=== PATIENT | female | born 1970 | race Caucasian/White ===

== ENCOUNTER 2020-07-03 07:03 | Day surgery (SDC) | payer BC ==
[~2020-07-03] VITALS: Ht 162.6 cm; Wt 79.5 kg
[2020-07-03 07:30] LABS: PROTIME 12.2 SECONDS (11.6-15.0)
[2020-07-03 07:37] LABS: ANION GAP 13.8 mmol/L (8-16); BILIRUBIN - TOTAL 0.81 mg/dL (0.2-1.3); CALCIUM 8.8 mg/dL (8.5-10.1); CARBON DIOXIDE 26.2 mmol/L (21.0-32.0); CREATININE - SERUM 0.9 mg/dL (0.6-1.3); PROTEIN - SERUM 7.5 g/dL (6.4-8.2)
[2020-07-03 07:38] LABS: BASOPHILS 0.2 % (0-2); EOSINOPHILS 2.5 % (0-7); HEMATOCRIT 43.5 % (36.0-48.0); HEMOGLOBIN 14.7 g/dL (12-16); IMMATURE GRANULOCYTES 0.2 % (0-5); LYMPHOCYTE ABS# 1.55 10x3/uL (1.18-3.74); MCH 29.9 pg (26.0-34.0); MCHC 33.8 g/dL (31.0-37.0); MCV 88.6 fL (80.0-100.0); MEAN PLATELET VOLUME 8.7 fL (7.4-10.4); MONOCYTES 7.2 % (2-11); NEUTROPHILS 59.9 % (40-80); PLATELET COUNT 187 10x3/uL (130-400); RBC 4.91 10x6/uL (4.00-5.40); RDW 13.1 % (11.5-14.5); WBC 5.2 10x3/uL (4.8-10.8)
[2020-07-03] MEDS ORDERED: ELIQUIS2.5 MG PO (07:42)
[2020-07-03] MEDS ORDERED: VYVANSE30 MG PO (07:43)
[2020-07-03] MEDS ORDERED: NP THYROID30 MG PO (07:43)
[2020-07-03] MEDS ORDERED: LEXAPRO5 MG PO (07:44)
[2020-07-03 07:56] VITALS: BP 142/84; Ht 162.6 cm; Wt 79.5 kg
[2020-07-03 08:04] LABS: HCG URINE NEGATIVE (NEGATIVE)
--- NOTE | 2020-07-03 09:54 | NUR ---
DC INSTRUCTIONS GIVEN TO PT. STATES UNDERSTANDING. DC'D IV CATH FULLY INTACT. WILL DC SHORTLY.
--- NOTE | 2020-07-03 14:46 | OP ---
PATIENT NAME: YEN MAYBERRY MEDICAL RECORD: [id number] :72 LOCATION:[facility] ADMISSION DATE: SURGEON: HOMER QUIROZ MD DATE OF OPERATION: 07/03/2020 PROCEDURE: Colonoscopy. PREOPERATIVE DIAGNOSIS: History of polyps and rectal bleeding. MEDICATION: Propofol per anesthesia. DESCRIPTION OF PROCEDURE: The patient was made comfortable in the left lateral position. The colonoscope was inserted through the rectum and advanced to the cecum, identified by the appendiceal orifice and the ileocecal valve. The quality of the prep was good. There were nonbleeding internal hemorrhoids viewed on retroflexion. The patient tolerated the procedure well. The remainder of the exam was normal. The entire examined mucosa was normal. FINAL DIAGNOSIS: Normal colonoscopy other than medium-sized internal hemorrhoids. PLAN: Recommend high fiber supplements. Given this patient's history of polyps, would recommend repeat colonoscopy in 3 years. 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
== END 2020-07-03 09:59 | disposition home or self-care (01) ==
LOC: D.OPS 07:03
PROVIDERS: ATTEND Internal Medicine Gastroenterology
DX: Z86.010 Personal history of colon polyps (principal); K64.8 Other hemorrhoids; K92.1 Melena; R19.4 Change in bowel habit